=== PATIENT | male | born 1965 | race Caucasian/White ===

== ENCOUNTER 2018-07-30 06:15 | Day surgery (SDC) | payer BC ==
[2018-07-30] MEDS ORDERED: PROPOFOL 200 MG INJ (07:00)
[2018-07-30] MEDS ORDERED: PROPOFOL 40 ML (07:44)
[2018-07-30] MEDS ORDERED: LIDOCAINE 2% (SDV) 5 ML INJ (07:44)
== END 2018-07-30 11:28 | disposition home or self-care (01) ==
LOC: GIL 06:15
DX: K92.1 Melena (principal); K29.30 Chronic superficial gastritis without bleeding; K64.8 Other hemorrhoids
CPT/HCPCS: 43239; 88305; 88312